=== PATIENT | male | born 1940 | race Caucasian/White ===

== ENCOUNTER → 2019-04-12 10:57 | Outpatient (CLI) | payer MEDICARE, SELFPAY ==
--- NOTE | ~2019-04-12 | XR_ITS ---
EXAMINATION: XR_RIBSBI_CR EXAM DATE: 04/12/2019 11:33 INDICATION: Left rib pain posteriorly. TECHNIQUE: Frontal projection of the upper left ribs, frontal projection of the lower left ribs, obli que projection of the left ribs. Frontal projection of the upper right ribs, frontal projection of t he lower right ribs, oblique projection of the right ribs, without chest x-ray(s) for interpretation. There is no prior study for comparison. FINDINGS: Bones are osteopenic. Please note that osteopenia limits sensitivity for detecting fractu res by radiographs. No acute displaced rib fracture identified. Mild to moderate thoracolumbar scolio sis. Paraspinal soft tissue is unremarkable. IMPRESSION: Osteopenia. No displaced rib fracture identified. Reviewed, dictated and finalized at location B. [employer]
--- NOTE | ~2019-04-12 | XR_ITS ---
EXAMINATION: XR thoracolumbar EXAM DATE: 04/12/2019 11:33 INDICATION: Mid back pain. TECHNIQUE: Frontal and lateral projections of the thoracolumbar spine as well as lateral swimmers pro jection of the upper thoracic spine for interpretation. There is no prior study for comparison. FINDINGS: There is mild thoracic dextroscoliosis, mild lumbar levoscoliosis. Bones are osteopenic. T here are multiple thoracolumbar compression fractures. Although there is no acute fracture line ident ified, certainly one or more of these fractures could have acute component. There is moderate disc di sease from L3-S1, mild to moderate at the lumbar levels above. Overall mild thoracic disc disease. Th ere is lower thoracic kyphosis, partly due to the compression fractures. There is advanced lower lumb ar facet arthropathy. Sacrum, sacroiliac joints, sacral arcuate lines are intact. Paraspinal soft tis brayan is unremarkable. IMPRESSION: 1. Osteopenia and multiple thoracolumbar compression fractures, can't exclude acute components. 2. Mild to moderate thoracolumbar scoliosis. 3. 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 Reviewed, dictated and finalized at location B. [employer]
== END ==
PROVIDERS: PCP Physician Assistant; Visit Provider Physician Assistant
DX: M85.88 Other specified disorders of bone density and structure, other site (principal); M47.894 Other spondylosis, thoracic region; M47.896 Other spondylosis, lumbar region; M51.36 Other intervertebral disc degeneration, lumbar region
CPT/HCPCS: 71110; 72080

== ENCOUNTER 2020-06-27 10:02 | Outpatient (CLI) | payer MEDICARE, SELFPAY | END 2020-06-27 10:03 | disposition home or self-care (01) | LOC: ANHCOVIDVC 10:02 | PROVIDERS: PCP Physician Assistant | DX: Z23 Encounter for immunization (principal) | CPT/HCPCS: 0001A; 91300 ==

== ENCOUNTER 2020-07-18 10:02 | Outpatient (CLI) | payer MEDICARE, SELFPAY | END 2020-07-18 10:03 | disposition home or self-care (01) | LOC: ANHCOVIDVC 10:02 | PROVIDERS: PCP Physician Assistant | DX: Z23 Encounter for immunization (principal) | CPT/HCPCS: 0002A; 91300 ==